=== PATIENT | male | born 1995 | race African-American/Black ===

== ENCOUNTER 2021-06-22 01:12 | Emergency (ER) | payer SELFPAY ==
[~2021-06-22] VITALS: Ht 188 cm; Wt 62.5 kg
[2021-06-22 01:35] VITALS: BP 154/74
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
== END 2021-06-22 02:19 ==
LOC: ER 01:12
DX: S46.911A Strain of unspecified muscle, fascia and tendon at shoulder and upper arm level, right arm, initial encounter (principal); V49.49XA Driver injured in collision with other motor vehicles in traffic accident, initial encounter; Y92.488 Other paved roadways as the place of occurrence of the external cause; Y93.89 Activity, other specified; Y99.8 Other external cause status
CPT/HCPCS: 99283